=== PATIENT | female | born 1995 ===

== ENCOUNTER 2017-08-11 13:17 | Emergency (ER) | payer MEDICAID ==
[2017-08-11 13:43] VITALS: BP 105/76; PULSE 102; RESP 16; TEMP 98.6; O2SAT 98
[2017-08-11] MEDS ORDERED: Alum-Mag Hydrox-Simethicone Susp (30 mL) PO STA (13:54)
[2017-08-11] MEDS ORDERED: Aluminum Hydroxide/Magnesium Hydroxide Susp (30 mL) ONE (14:00)
[2017-08-11 14:51] LABS: HCG,QUALITATIVE URINE NEGATIVE (NEGATIVE); SQUAMOUS EPITHIAL 2 /hpf (0-5); URINE BILIRUBIN NEGATIVE (NEGATIVE); URINE CLARITY Clear (Clear); URINE COLOR Yellow (YELLOW); URINE GLUCOSE (UA) NORMAL (Normal); URINE LEUKOCYTE ESTERASE NEG Leu/uL (Negative); URINE PROTEIN NEGATIVE (NEGATIVE); URINE UROBILINOGEN NORMAL mg/dL (0.2-1.0)
[2017-08-11 14:55] LABS: URINE BLOOD 1+ (NEGATIVE)
--- NOTE | 2017-08-11 16:16 | C.PDOC ---
History Of Present Illness 22 y/o female presents to the ED with nausea, vomiting, and diarrhea since last night. Nausea is now resolved. Symptoms were onset 6 hours after eating [place] take-out food. Patient reports diet is based in [place] fries and take-out. No fever or chills. Time Seen by Provider: 08/11/17 13:47 Chief Complaint (Nursing): Abdominal Pain History Per: Patient History/Exam Limitations: no limitations Onset/Duration Of Symptoms: Hrs Current Symptoms Are (Timing): Still Present Past Medical History Reviewed: Historical Data, Nursing Documentation, Vital Signs Vital Signs: Last Vital Signs Temp 98.6 F 08/11/17 13:40 Pulse 102 H 08/11/17 13:40 Resp 16 08/11/17 13:40 BP 105/76 08/11/17 13:40 Pulse Ox 98 08/11/17 16:16 - Medical History PMH: No Chronic Diseases Surgical History: No Surg Hx Family History: States: No Known Family Hx - Social History Hx Tobacco Use: No Hx Alcohol Use: No Hx Substance Use: No - Immunization History Hx Tetanus Toxoid Vaccination: No Hx Influenza Vaccination: No Review Of Systems Except As Marked, All Systems Reviewed And Found Negative. Constitutional: Negative for: Fever, Chills Cardiovascular: Negative for: Chest Pain Respiratory: Negative for: Shortness of Breath Gastrointestinal: Positive for: Nausea, Vomiting, Diarrhea. Negative for: Abdominal Pain Physical Exam - Physical Exam Appears: Non-toxic, No Acute Distress, Other (Obese female) Skin: Normal Color, Warm, Dry Head: Atraumatic, Normacephalic Eye(s): bilateral: Normal Inspection, PERRL, EOMI Nose: Normal Oral Mucosa: Moist Neck: Normal ROM, Supple Chest: Symmetrical Cardiovascular: Rhythm Regular, No Murmur Respiratory: Normal Breath Sounds, No Rales, No Rhonchi, No Wheezing Gastrointestinal/Abdominal: Soft, No Tenderness, Other (Obese abdomen) Extremity: Bilateral: Atraumatic, Normal Color And Temperature, Normal ROM Neurological/Psych: Oriented x3, Normal Speech ED Course And Treatment - Laboratory Results Lab Interpretation: Normal (ua neg,) Urine POC: Negative O2 Sat by Pulse Oximetry: 98 (RA) Pulse Ox Interpretation: Normal Progress Note: GABRIELLA carrera Reevaluation Time: 16:15 Reassessment Condition: Improved Medical Decision Making Medical Decision Making: Impression: food born illness, probably yesterday's [place] take-out food. vomiting resolved [employer] VSS Disposition Doctor Will See Patient In The: Office Counseled Patient/Family Regarding: Studies Performed, Diagnosis, Need For Followup - Disposition Referrals: Shaik Shah MD [Staff Provider] - Disposition: HOME/ ROUTINE Disposition Time: 16:16 Condition: GOOD Additional Instructions: bland diet for 2 days avoid [place] take out food- high risk Urinalysis and tests NEGATIVE Instructions: Gastroenteritis (DC) Forms: [email or web address] (Lao) - POA Present On Arrival: None - Clinical Impression Clinical Impression: Gastroenteritis due to food toxin - Scribe Statement The provider has reviewed the documentation as recorded by the Scribe (Yola Anderson) Provider Attestation: All medical record entries made by the Scribe were at my direction and personally dictated by me. I have reviewed the chart and agree that the record accurately reflects my personal performance of the history, physical exam, medical decision making, and the department course for this patient. I have also personally directed, reviewed, and agree with the discharge instructions and disposition.
== END 2017-08-11 16:25 | disposition home or self-care (01) ==
LOC: C.ER 13:17
DX: A05.9 Bacterial foodborne intoxication, unspecified (principal)

== ENCOUNTER 2018-08-08 12:00 | Emergency (ER) | payer MEDICAID ==
--- NOTE | 2018-08-08 12:25 | C.PDOC ---
History Of Present Illness 23 y/o female presents to ED complaining of a worsening headache. Patient states she normally has headache on and off for the last month that often feels like tension. She reports that for the last 2 days, she had nausea and vomiting. Patient denies any dizziness, chest pain, abdominal pain, diarrhea, or other complaints. Time Seen by Provider: 08/08/18 12:24 Chief Complaint (Nursing): Headache History Per: Patient History/Exam Limitations: no limitations Onset/Duration Of Symptoms: Days Current Symptoms Are (Timing): Still Present Past Medical History Reviewed: Historical Data, Nursing Documentation, Vital Signs Vital Signs: Last Vital Signs Temp 98.2 F 08/08/18 12:06 Pulse 79 08/08/18 12:06 Resp 20 08/08/18 12:06 BP 98/68 L 08/08/18 12:06 Pulse Ox 99 08/08/18 12:06 - Medical History PMH: Asthma Family History: States: No Known Family Hx - Social History Hx Tobacco Use: No Hx Alcohol Use: No Hx Substance Use: No - Immunization History Hx Tetanus Toxoid Vaccination: No Hx Influenza Vaccination: No Review Of Systems Except As Marked, All Systems Reviewed And Found Negative. Constitutional: Negative for: Fever Cardiovascular: Negative for: Chest Pain Gastrointestinal: Positive for: Nausea, Vomiting. Negative for: Abdominal Pain, Diarrhea Neurological: Positive for: Headache. Negative for: Dizziness Physical Exam - Physical Exam Appears: Non-toxic, No Acute Distress Skin: Warm, Dry Head: Atraumatic Eye(s): bilateral: Normal Inspection Oral Mucosa: Moist Neck: Supple Cardiovascular: Rhythm Regular, No Murmur Respiratory: Normal Breath Sounds, No Rales, No Rhonchi, No Wheezing Gastrointestinal/Abdominal: Soft, No Tenderness Extremity: Bilateral: Atraumatic, Normal Color And Temperature, Normal ROM Neurological/Psych: Oriented x3, Normal Speech ED Course And Treatment - Laboratory Results Result Diagrams: 08/08/18 14:39 08/08/18 14:39 O2 Sat by Pulse Oximetry: 99 (RA) Pulse Ox Interpretation: Normal - CT Scan/US Obstetrics US Other Rad Studies (CT/US): Read By Radiologist, Radiology Report Reviewed CT/US Interpretation: FINDINGS: LMP: 07/11/2018. Prior examinations from the current : None. TECHNIQUE: Real-time 2D imaging, duplex and color Doppler. FINDINGS: Cardiac activity: Present. Rate: 120 BPM. Measurements: [place] rump length: 0.27 cm. Gestational age based on CRL 5 weeks 6 days. Gestational age 5 weeks 4 days based on gestational sac measurement 1.41 cm. Gestational age derived from LMP: 4 weeks. TRAVIS based on LMP: 04/17/2019. TRAVIS based on biometry: 04/05/2019. Gestational concordance documented. Yolk sac identified. Cervix: No Cervical abnormalities: Negative examination for cervical dilatation or effacement. Closed cervix measuring 3.32 cm. Subchorionic hemorrhage: None. UTERUS: 5.5 x 6.9 x 9.5 cm. ADNEXA: Right: 2.6 x 3.3 x 2.97 cm. Normal Doppler arterial waveform documented. Left: 1.9 x 1.9 x 2.9 cm. Normal Doppler arterial waveform documented. Fluid in the cul-de-sac: Trace free fluid identified in the pelvis/cul de sac. IMPRESSION: Single live intrauterine gestation 5 weeks 5 days, TRAVIS 04/05/2019. Progress Note: Labs and obstetrics US ordered. Urine positive. Patient was given IV fluids and reglan. On re-evaluation patient feels better. UA with signs of UTI. Macrobid po ordered. Patient is stable to be d/c home. Recommended to f/u with PMD and OBGYN and to return to ED if feels worse. Disposition - Disposition Referrals: Shaik Shah MD [Staff Provider] - Disposition: HOME/ ROUTINE Disposition Time: 16:32 Condition: STABLE Additional Instructions: Follow up with PMD and OBGYN within 1-2 days. Return to ED if feel worse. Prescriptions: Nitrofurantoin Macrocrystals [Macrobid] 1 cap PO BID #14 cap Vits #93/Iron Fum/FA [ Formula Tablet] 1 each PO DAILY #30 tablet Ondansetron ODT [Zofran ODT] 4 mg PO .Q4-6H PRN #20 odt PRN Reason: Nausea/Vomiting Instructions: Urinary Tract Infection, Adult (DC), Headache, Adult (DC), - The Second Month Forms: [employer] ([place]wana) - Clinical Impression Clinical Impression: Headache, , UTI (urinary tract infection) during - PA / PROFESSOR OF NURSING / Resident Statement MD/DO has reviewed & agrees with the documentation as recorded. - Scribe Statement The provider has reviewed the documentation as recorded by the Scribe Manisha Farrell All medical record entries made by the Sanjiviblenny were at my direction and personally dictated by me. I have reviewed the chart and agree that the record accurately reflects my personal performance of the history, physical exam, medical decision making, and the department course for this patient. I have also personally directed, reviewed, and agree with the discharge instructions and disposition.
[2018-08-08 13:23] VITALS: RESP 16
[2018-08-08] MEDS ORDERED: Sodium Chloride 0.9% 1,000 ML IV STA (14:13)
[2018-08-08] MEDS ORDERED: Sodium Chloride 0.9% 1,000 ML ONE (14:40)
[2018-08-08 14:44] LABS: BASO % 0.5 % (0.0-2.0); EOS % 0.4 % (0.0-4.0); HEMOGLOBIN 13.5 g/dL (11.0-16.0); LYMPH # 2.2 K/uL (1.0-4.3); LYMPH % 22.1 % (20.0-40.0); MEAN CELL VOLUME 89.6 fL (81.0-99.0); MEAN CORPUSCULAR HEMOGLOBIN 30.9 pg (27.0-31.0); MEAN CORPUSCULAR HGB CONC 34.5 g/dL (33.0-37.0); MONO # 0.6 K/uL (0.0-0.8); MONO % 6.3 % (0.0-10.0); NEUT # 6.9 K/uL (1.8-7.0); NEUT % 70.7 % (50.0-75.0); RBC 4.38 Mil/uL (3.80-5.20); RED CELL DISTRIBUTION WIDTH 13.2 % (11.5-14.5); WHITE BLOOD COUNT 9.8 K/uL (4.8-10.8)
[2018-08-08 14:52] LABS: SQUAMOUS EPITHIAL 41 /hpf (0-5); URINE BACTERIA RARE (<OCC); URINE BILIRUBIN NEGATIVE (NEGATIVE); URINE BLOOD 1+ (NEGATIVE); URINE CLARITY Hazy (Clear); URINE COLOR Yellow (YELLOW); URINE GLUCOSE (UA) NORMAL (Normal); URINE LEUKOCYTE ESTERASE TRACE Leu/uL (Negative); URINE PROTEIN NEGATIVE (NEGATIVE); URINE UROBILINOGEN NORMAL mg/dL (0.2-1.0)
[2018-08-08 15:04] LABS: ALB/GLOB RATIO 1.5 (1.0-2.1); ALBUMIN 4.5 g/dL (3.5-5.0); ALT/SGPT 9 U/L (9-52); AST/SGOT 17 U/L (14-36); BLOOD UREA NITROGEN 6 mg/dL (7-17); CALCIUM 9.4 mg/dl (8.6-10.4); GFR NON-AFRICAN AMERICAN > 60
[2018-08-08 16:02] VITALS: BP 106/68; PULSE 85; TEMP 98.2
--- NOTE | 2018-08-08 16:15 | US ---
Date of service: 08/08/2018 PROCEDURE: First trimester ultrasound HISTORY: , abd discomfort, headache, vomiting COMPARISON: None TECHNIQUE: Standard protocol for this study/examination. FINDINGS: LMP: 07/11/2018 Prior examinations from the current : None TECHNIQUE: Real-time 2D imaging, duplex and color Doppler. FINDINGS: Cardiac activity: Present Rate: 120 BPM Measurements: [place] rump length: 0.27 cm Gestational age based on CRL 5 weeks 6 days Gestational age 5 weeks 4 days based on gestational sac measurement 1.41 cm Gestational age derived from LMP: 4 weeks TRAVIS based on LMP: 04/17/2019 TRAVIS based on biometry: 04/05/2019 Gestational concordance documented Yolk sac identified Cervix: No Cervical abnormalities: Negative examination for cervical dilatation or effacement. Closed cervix measuring 3.32 cm Subchorionic hemorrhage: None UTERUS: 5.5 x 6.9 x 9.5 cm. ADNEXA: Right: 2.6 x 3.3 x 2.97 cm. Normal Doppler arterial waveform documented. Left: 1.9 x 1.9 x 2.9 cm. Normal Doppler arterial waveform documented Fluid in the cul-de-sac: Trace free fluid identified in the pelvis/cul de sac. IMPRESSION: Single live intrauterine gestation 5 weeks 5 days, TRAVIS 04/05/2019.
[2018-08-08 16:22] VITALS: O2SAT 99
== END 2018-08-08 16:55 | disposition home or self-care (01) ==
LOC: C.ER 12:00
DX: O23.41 Unspecified infection of urinary tract in pregnancy, first trimester (principal); O26.891 Other specified pregnancy related conditions, first trimester; R51 Headache; Z3A.01 Less than 8 weeks gestation of pregnancy
CPT/HCPCS: 76805; 76817; 80053; 81001; 81025; 84702; 85025; 96374; 99285; J2765; J7030